=== PATIENT | male | born 1985 | race Caucasian/White ===

== ENCOUNTER 2017-03-31 16:53 | Emergency (ER) | payer SELFPAY ==
[~2017-03-31] VITALS: Ht 170.2 cm; Wt 65.5 kg
[2017-03-31 17:06] VITALS: Ht 170.2 cm; Wt 65.5 kg
[2017-03-31] MEDS ORDERED: HYDROCODONE/APAP (5/325) TAB PO ONE (19:00)
[2017-03-31] MEDS ORDERED: HYDR-906 PO (20:00)
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
--- NOTE | 2017-03-31 20:21 | RADRPT ---
PROCEDURE: XR Lumbar Spine. CLINICAL INDICATION: Lumbar spine pain. TECHNIQUE: AP and lateral view of the lumbar spine were obtained. COMPARISON: No prior studies are available for comparison. FINDINGS: The the film is overpenetrated, slightly limiting visualization of the soft tissues. The alignment of the lumbar spine is within normal limits. The vertebral body heights and marrow density are norm al in appearance. There is preservation of the intervertebral disc spaces. There is no significant facet spondylosis. The neural foramina appear patent. The paraspinal soft tissues unremarkable. The posterior elements are unremarkable IMPRESSION: 1. Overpenetrated film, limiting evaluation of the soft tissues. 2. Normal radiographs of the lumbar spine. 3. No evidence of fracture or significant degenerative disc disease. RPTAT: HGAS .Richard Stacy MD, Date Time Electronically viewed and signed by .Richard Stacy MD, on 03/31/2017 20:21 .S/
--- NOTE | 2017-03-31 20:27 | RADRPT ---
PROCEDURE: XR Knee. CLINICAL INDICATION: Left knee pain with patellar tenderness. TECHNIQUE: AP, lateral and oblique views of the left knee were obtained. The images reviewed on a PACS workstation. COMPARISON: None. FINDINGS: There is extensive subchondral sclerosis involving the lateral tibial plateau, with fusion of the ti zack and fibula laterally. There is low density extending into the tibial metaphysis. There is exte nsive subtle hyperdensity involving the proximal tibial metaphysis. The distal femur is unremarkabl e. There is severe degenerative changes of the lateral compartment and mild degenerate changes of t he medial compartment. There is a small suprapatellar joint effusion. The patellofemoral compartme nt is unremarkable. IMPRESSION: 1. Extensive chronic-appearing sclerosis involving the lateral tibial plateau, which is nonspecific . This may be related to remote prior fracture status post fixation with fusion of the lateral tibi a. If clinical concern for fracture, CT may be helpful for further evaluation. 2. Small suprapatellar joint effusion. 3. Severe lateral and mild medial compartment degenerative changes. RPTAT: HGAS .Richard Stacy MD, MD Date Time Electronically viewed and signed by .Richard Stacy MD, on 03/31/2017 20:27 .S/
== END 2017-03-31 21:08 | disposition home or self-care (01) ==
LOC: FTE 16:53
DX: S39.012A Strain of muscle, fascia and tendon of lower back, initial encounter (principal); S83.92XA Sprain of unspecified site of left knee, initial encounter; E11.9 Type 2 diabetes mellitus without complications; F17.210 Nicotine dependence, cigarettes, uncomplicated; V49.50XA Passenger injured in collision with unspecified motor vehicles in traffic accident, initial encounter
CPT/HCPCS: 72100; 73562

== ENCOUNTER 2018-02-21 10:58 | Emergency (ER) | END 2018-02-21 12:29 | disposition home or self-care (01) ==